=== PATIENT | male | born 1970 ===

== ENCOUNTER 2022-03-07 05:43 | Day surgery (SDC) | payer OTHER ==
[~2022-03-07 05:43] MED LIST: COZAAR25 MG PO; HYDROCHLOROTHIA25 MG PO; LIPIT PO; LOSART PO
== END 2022-03-07 13:40 | disposition home or self-care (01) ==
LOC: CIR.AMB 05:43
PROVIDERS: ATTEND Surgery
DX: K43.6 Other and unspecified ventral hernia with obstruction, without gangrene (principal); I10 Essential (primary) hypertension; E78.5 Hyperlipidemia, unspecified; Z86.16 Personal history of COVID-19; G47.33 Obstructive sleep apnea (adult) (pediatric); Z99.89 Dependence on other enabling machines and devices; E66.01 Morbid (severe) obesity due to excess calories
CPT/HCPCS: 49507; C1781